=== PATIENT | male | born 1990 | race Caucasian/White ===

== ENCOUNTER 2020-03-15 12:28 | Emergency (ER) | payer OTHER, SELFPAY ==
[2020-03-15 12:32] VITALS: BP 142/77; PULSE 108; RESP 22; O2SAT 99
--- NOTE | 2020-03-15 15:38 | ED.GENADULT ---
HPI - General Adult General Chief complaint: Wound/Laceration Stated complaint: ambulance Source: patient Mode of arrival: EMS Limitations: no limitations History of Present Illness HPI narrative: This 31-year-old lacerated his left forearm at approximately noon today. He states he was flipping a large Alicia knife which came down on his forearm. A business lawyer who accompanied the paramedics stated Alexis was arguing with his girlfriend, was holding a knife which he used to cut his left forearm. Alexis denies this He has mild discomfort in the forearm which becomes severe with movement of his wrist or pronation/supination. He denies numbness or tingling in his forearm /hand He is not certain about his last tetanus shot but refuses one today. Related Data Home Medications Medication Instructions Recorded Confirmed No Home Medications 03/15/20 03/15/20 Allergies Allergy/AdvReac Type Severity Reaction Status Date / Time cyclobenzaprine Allergy Intermediate Hives Verified 03/15/20 12:31 tramadol Allergy Mild Hives Verified 03/15/20 12:31 sulfamethoxazole Allergy Hives Verified 03/15/20 12:31 [From Bactrim] trimethoprim [From Bactrim] Allergy Hives Verified 03/15/20 12:31 Review of Systems Constitutional: Constitutional: Denies chills and Denies fever(s) Respiratory: Respiratory: Denies chest congestion, Denies cough, Denies dyspnea and Denies wheezing Psychiatric: Comments: Denies feeling anxious or depressed. [facility] Past Medical History Medical History (Updated 03/16/20 @ 06:36 by Mane Ortega MD) Patient denies significant medical history Exam Neuro: General: patient oriented x3 Other: Light touch sensation distal to left forearm laceration - dorsal and volar - is intact. 4 mm 2 point differentiation of all 5 fingertips is intact. Extrem: Other: Transverse 8 cm laceration across the left anterior mid-forearm. There is clotted blood in the wound with minor oozing of blood along the skin edges. No proximal or distal forearm s.c. masses suggesting severed muscle bellies. He is very tender both 3 cm proximal and distal to laceration. Laceration extends to the muscle layer. There is a deep laceration in the lateral aspect of the wound; no identified muscle tear or tendon laceration. Forearm pain with passive wrist flexion/extension/pronation/supination. No pain or weakness with flexion/extension of digits. Course Course Emergency Course: Wound was explored and sutured. Pt. informed the tenderness proximal and distal to the laceration and pain with wrist movement indicate a muscle and/or tendon laceration which requires follow up with a hand/plastic surgeon. The forearm/wrist and hand were placed in a volar splint. Pt went out for a cigarette and walked away. My intention was to make arrangements for patient to follow up with surgery next week. Vital Signs Vital signs: Vital Signs Pulse Rate 108 H 03/15/20 12:32 Respiratory Rate 22 H 03/15/20 12:32 Blood Pressure 142/77 H 03/15/20 12:32 Pulse Oximetry 99 03/15/20 12:32 Pulse Rate 108 H 03/15/20 12:32 Respiratory Rate 22 H 03/15/20 12:32 Blood Pressure 142/77 H 03/15/20 12:32 Pulse Oximetry 99 03/15/20 12:32 Procedures Laceration Laceration 1: Date: 03/15/20 Time: 15:50 Site: upper extremity ( forearm) Side (If applicable): left Size (cm): 8 Description: linear, clean and contaminated Depth: involves muscle layer Local Anesthetic: lidocaine 1% Amount of anesthesia used (mL): 4 Pre-repair: wound explored and irrigated ====== Skin Level ====== Size (cm): 3-0 Number of sutures: 11 Technique: running ====== Subcutaneous Layer ====== ====== Muscle Layer ====== ====== Tendon Layer ====== Medical Decision Making Differential Diagnosis Differential Diagnosis: Lacerated tendon/muscl
== END 2020-03-15 14:40 | disposition left against medical advice (07) ==
PROVIDERS: Emergency Provider Family Medicine
DX: S51.812A Laceration without foreign body of left forearm, initial encounter (principal); W26.0XXA Contact with knife, initial encounter
CPT/HCPCS: 12004; 99281; 99282